=== PATIENT | male | born 1975 | race Caucasian/White ===

== ENCOUNTER 2023-05-21 10:56 | Observation (INO) ==
[2023-05-21] MEDS ORDERED: SODIUM CHLORIDE 0.9% 1,000 ML IV ONE (11:28)
[2023-05-21 11:55] LABS: Basophils # (auto) 0.04 K/uL (0.00-0.20); Basophils % (auto) 0.7 %; Eosinophils # (auto) 0.02 K/uL (0.00-0.50); Eosinophils % (auto) 0.4 %; Hematocrit (blood only) 41.2 % (42.0-52.0); Hemoglobin 13.9 g/dl (14.0-18.0); Immature Granulocytes # (auto) 0.02 K/uL (0.01-0.20); Immature Granulocytes % (auto) 0.4 %; Lymphocytes # (auto) 0.71 K/uL (1.20-3.40); Lymphocytes % (auto) 13.2 %; Mean Corpuscular Hemoglobin 31.2 pg (25.0-34.0); Mean Corpuscular Hgb Conc 33.7 g/dL (32.0-36.0); Mean Corpuscular Volume 92.4 fL (80.0-100.0); Mean Platelet Volume 10.4 fL (9.4-12.4); Monocytes # (auto) 0.65 K/uL (0.11-0.59); Monocytes % (auto) 12.1 %; Neutrophils # (auto) 3.92 K/uL (1.40-6.50); Neutrophils % (auto) 73.2 %; Platelet Count 151 K/uL (130-400); RDW Coefficient of Variation 12.8 % (11.5-14.5); RDW Standard Deviation 43.6 fL (36.4-46.3); Red Blood Count 4.46 M/uL (4.70-6.10); White Blood Count 5.36 K/ul (4.8-10.8)
--- NOTE | 2023-05-21 12:01 | CT Scan Report ---
CT SCAN OF THE BRAIN WITHOUT IV CONTRAST CLINICAL HISTORY: Seizure. COMPARISON STUDY: No priors. TECHNIQUE: Unenhanced axial CT scan of the brain is performed from the vertex to the skull base. A d ose lowering technique was utilized adhering to the principles of ALARA. CT DOSE: 547.75 mGy.cm FINDINGS: Brain parenchyma: A chronic appearing lacunar infarct is noted in the right caudate head. There is no hemorrhage, mass effect, or evidence of acute territorial ischemia by CT criteria. Rey-white matter differentiation is preserved. No extra-axial fluid collection is seen. Ventricles, sulci, cisterns: Normal in configuration. Intracranial vasculature: The visualized intracranial vasculature at the skull base is normal in appe arance. Calvarium: Unremarkable. Sinuses and mastoids: The visualized paranasal sinuses are clear. The mastoid air cells are well pneu matized. Orbits: The bony orbits are grossly intact. IMPRESSION: There is no hemorrhage, mass effect, or evidence of acute territorial ischemia by CT samia gonzalez. ACT 112: Negative or not required by law. Electronically signed by: Sherif Lemus M.D. 05/21/2023 11:59 AM
[2023-05-21 12:10] LABS: BUN Creatinine Ratio 8.9 (10-20); Calcium 8.3 mg/dl (8.6-10.3); Creatinine Clr Calc Pharmacy 85.9 ml/min; Est GFR (African American) 89.5 ml/min; Est GFR (Non-African American) 77.3 ml/min; Magnesium 1.9 mg/dl (1.7-2.4)
[2023-05-21 12:16] LABS: Partial Thromboplastin Ratio 1.1; Partial Thromboplastin Time 30 Seconds (21-31); Prothrombin Time 11.2 Seconds (9.0-12.0)
[2023-05-21 13:23] LABS: Appearance Urine Clear (Clear); Bilirubin Urine Negative (Negative); Blood Urine Negative (Negative); Color Urine Yellow; Glucose Urine UA Negative (Negative); Ketones Urine Negative (Negative); Leukocyte Esterase Urine Negative (Negative); Nitrite Urine Negative (Negative); Protein Urine Negative (Negative); Specific Gravity Urine 1.003 (1.000-1.030); Urobilinogen Urine Negative (Negative)
--- NOTE | 2023-05-21 16:29 | History & Physical Report ---
Date of Service May 21, 2023 Assessment & Plan (1) Seizure-like activity: Plan: Admit to telemetry Patient presenting after observed seizure-like activity while at work. No prior history of seizures. Denies alcohol and drug use. Patient currently back to baseline mental state, no further seizure-like activity Head CT unremarkable Neurology notified by ED provider. Recommending admission for additional observation, brain MRI, EEG. Seizure precaution Hold on AEDs at this time (2) Hypokalemia: Plan: K+ 3.0, Mg+ 1.9 Replace, follow electrolytes (3) Tobacco abuse: Plan: Nicotine patch Patient counseled regarding tobacco cessation DVT PROPHYLAXIS SCDs Patient seen in collaboration with Dr. Lambert. I spent a total of 75 minutes coordinating, documenting, and providing care for this patient excluding time spent in the performance of separately billed servi amy. This included personally reviewing all current laboratories and imaging studies, medication reconciliation, outpatient chart review, and discussion with specialists. History of Present Illness Chief Complaint: Seizure-like activity Primary Care Provider: NO PCP 47 year old male without significant PMH who presents to the ED for evaluation of seizure-like activity. History is obtained from the patient. Patient reports that he was at work today when he started to feel lightheaded. States that he started to walk toward a chair to sit down and the next thing he knew he was waking up on the floor. Reports that his coworkers told him that his eyes had rolled back in the head and he was convulsing on the floor. He also had urinary incontinence. Symptoms lasted for about 30 seconds. No tongue biting or vomiting. Patient denies alcohol and drug use. Reports he otherwise has been feeling well recently. No other recent illnesses, fevers, chills. He denies chest pain and shortness of breath. No lightheadedness, dizziness, diaphoresis. No abdominal pain, nausea, diarrhea. Denies urinary symptoms. In the ED, patient is hemodynamically stable, labs show mild hypokalemia, otherwise unremarkable, head CT unremarkable for acute findings. Patient was given IVF. Neurology was contacted by ED provider who recommended admission for additional workup. Allergies Allergy/AdvReac Type Severity Reaction Status Date / Time bee venom protein (honey bee) Allergy Severe Swelling Unverified 05/21/23 14:36 of Lip/Tongue/Throat sulfamethoxazole Allergy Severe Hives Unverified 05/21/23 14:36 Home Medications Medication Instructions Recorded Confirmed Type No Known Home Medications 05/21/23 05/21/23 History Past Med/Surg History Medical History Tobacco abuse No pertinent past medical history Surgical History History of foot surgery Social History Smoking Status: Current every day smoker Tobacco Type: Cigarettes Cigarettes Per Day: 20; Second Hand Exposure: Yes; Do You Dip or Chew Tobacco: No; Tobacco Cessation Education Requested by Patient: No Hx Alcohol Use: No Hx Substance Use: No Preferred Language: Surinamese Communication Ability: Effective Input Output Clerk Required: No Beliefs That Will Affect Care: None Current Living Situation: Spouse Other Information That Helps Us Care for You: No Feels Safe at Home: Yes Safety Concerns: Feels Safe At This Time Assistive Devices: Glasses Physical Exam Constitutional: WD/WN, vitals as above Eyes: PERRL, conjunctivae normal, anicteric sclerae ENMT: external ear and nose normal, oropharynx normal Respiratory: normal respiratory effort, lungs clear to auscultation Cardiovascular: Rate/Rhythm: regular rate and regular rhythm Vessels: normal peripheral pulses Extremities: no edema Gastrointestinal (Abdomen): normal bowel sounds, soft, nontender, no hepatosplenomegaly Musculoskeletal: no cyanosis or clubbing, extremities motor strength 5/5 Skin: no rashes, warm and dry Neurologic: PERRL, EOMI, accommodation nl, no face palsy, no dysarthria Psychiatric: A+Ox3, euthymic affect Results & Data Results & Data Vital Signs (Past 12 Hours) Vital Signs Temp Pulse Resp BP Pulse Ox O2 Del Method 05/21/23 15:37 63 18 136/83 97 Room Air 05/21/23 15:00 125/79 05/21/23 15:00 60 22 05/21/23 14:30 139/82 05/21/23 14:30 63 18 Room Air 05/21/23 14:00 134/84 05/21/23 14:00 74 21 96 Room Air 05/21/23 13:30 127/85 05/21/23 13:30 69 20 05/21/23 13:12 67 18 05/21/23 13:12 127/92 05/21/23 12:38 72 05/21/23 12:30 132/80 05/21/23 12:30 73 21 05/21/23 12:00 71 17 95 Room Air 05/21/23 12:00 141/83 H 05/21/23 11:30 72 15 05/21/23 11:21 96 Room Air 05/21/23 11:13 36.7 C 80 21 129/79 96 Room Air Laboratory Results Short CBC 05/21/23 Range/Units 11:30 WBC 5.36 (4.8-10.8) K/ul Hgb 13.9 L (14.0-18.0) g/dl Hct 41.2 L (42.0-52.0) % Plt Count 151 (130-400) K/uL BMP 05/21/23 11:30 Sodium 138 Potassium 3.0 L Chloride 106 Carbon Dioxide 24 BUN 10 Creatinine 1.12 Glucose 113 H Calcium 8.3 L Urine 05/21/23 Range/Units 13:09 Urine Color Yellow Urine Appearance Clear (Clear) Urine pH 6.0 (4.5-7.5) Ur Specific [place] 1.003 (1.000-1.030) Urine Protein Negative (Negative) Urine Glucose (UA) Negative (Negative) Diagnostic Findings Head CT 05/21/23 11:29 CT SCAN OF THE BRAIN WITHOUT IV CONTRAST CLINICAL HISTORY: Seizure. COMPARISON STUDY: No priors. TECHNIQUE: Unenhanced axial CT scan of the brain is performed from the vertex to the skull base. A dose lowering technique was utilized adhering to the principles of ALARA. CT DOSE: 547.75 mGy.cm FINDINGS: Brain parenchyma: A chronic appearing lacunar infarct is noted in the right caudate head. There is no hemorrhage, mass effect, or evidence of acute territorial ischemia by CT criteria. Rey-white matter differentiation is preserved. No extra-axial fluid collection is seen. Ventricles, sulci, cisterns: Normal in configuration. Intracranial vasculature: The visualized intracranial vasculature at the skull base is normal in appearance. Calvarium: Unremarkable. Sinuses and mastoids: The visualized paranasal sinuses are clear. The mastoid air cells are well pneumatized. Orbits: The bony orbits are grossly intact. IMPRESSION: There is no hemorrhage, mass effect, or evidence of acute territorial ischemia by CT criteria. ACT 112: Negative or not required by law. Electronically signed by: Sherif Lemus M.D. 05/21/2023 11:59 AM Code Status & VTE Plan VTE Prophylaxis Plan VTE Prophylaxis will be ordered: Yes Supervising Physician Co-Signing Physician Notes Attending addendum; The patient was seen and examined in telemetry unit He was admitted with seizures x 2 while at workplace With incontinence of urine but no significant injury and no frothing from the mouth under tongue bite Did not feel any a profound weakness following the incident Denies any symptoms during my examination On examination Eating on a chair without any acute distress Hemodynamically stable Chest-clear to auscultate bilaterally Heart-S1, S2 regular Abdomen-benign Extremities-negative for any edema 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 No focal sensory or motor deficit appreciated His admission labs, imaging studies reviewed CT and MRI has been negative No seizure medication started Will have EEG Neuroconsult Agree with assessment and plan as outlined above by Cary Lambert
[2023-05-21] MEDS ORDERED: GADOBUTROL 65ML VIAL IV ONE (16:36)
[2023-05-21] MEDS ORDERED: POTASSIUM CHLORIDE CRTAB 20 MEQ TABCR PO STA (16:38)
[2023-05-21] MEDS ORDERED: ACETAMINOPHEN 325 MG TAB PO PRN (16:47)
--- NOTE | 2023-05-21 17:07 | Magnetic Resonance Report ---
MR brain seizure wo/w con HISTORY: 47 years-old Male seizure acute seizure-like activity COMPARISON: Head CT of same day TECHNIQUE: Multiple multisequence MRI of the brain was obtained with and without use of IV contrast u tilizing seizure protocol. FINDINGS: Study is mildly motion degraded. There is no restricted diffusion. The midline structures are unremar kable. Partially empty sella. There is no acute intracranial hemorrhage, midline shift, abnormal extr a-axial collection, hydrocephalus or intra-axial mass. There is no abnormal enhancement. The mesial t emporal lobes appear to be within normal limits. The brain volume is within normal limits. There are a few scattered punctate foci of T2/FLAIR prolongation within the subcortical and periventricular whi te matter which are likely of no clinical evidence. No acute seizure focus, calixto matter heterotopia o r cortical dysplasia. Cerebral venous sinuses and major arterial flow voids appear patent. Skull, orbits and soft tissues a re unremarkable. Minimal mucosal thickening of the left maxillary sinus. IMPRESSION: 1. No acute intracranial abnormality. 2. No abnormal enhancement. ACT 112: Negative or not required by law. The above report was generated using voice recognition software. It may contain grammatical, syntax o r spelling errors. Electronically signed by: Sb Abbott M.D. 05/21/2023 5:05 PM
--- NOTE | 2023-05-21 17:52 | Emergency Department Note ---
History of Present Illness General Chief complaint: Seizure Stated complaint: SEIZURE Time Seen by Provider: 05/21/23 11:22 History of Present Illness Provider complaint: Seizure 47-year-old male presents emergency department for reported seizure. Patient reports that he was at work where he works for [employer]. 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 He reports no contact with any high voltage electricity or exposure to any noxious fumes or gases. Patient reports he started feel lightheaded and then woke up on the floor. Patient reports that his coworkers were telling him that he was seizing and convulsing on the floor. Patient reports no headaches. Reports no nausea or vomiting. Patient reports no urinary incontinence. No tongue bite. Patient reports no history of seizure. Home Medications Medication Instructions Recorded Confirmed Type No Known Home Medications 05/21/23 05/21/23 History Allergies Allergy/AdvReac Type Severity Reaction Status Date / Time bee venom protein (honey bee) Allergy Severe Swelling Unverified 05/21/23 14:36 of Lip/Tongue/Throat sulfamethoxazole Allergy Severe Hives Unverified 05/21/23 14:36 Past Med/Surg History Medical History Tobacco abuse No pertinent past medical history Surgical History History of foot surgery Social History Smoking Status: Current every day smoker Tobacco Type: Cigarettes Cigarettes Per Day: 20; Second Hand Exposure: Yes; Do You Dip or Chew Tobacco: No; Tobacco Cessation Education Requested by Patient: No Hx Alcohol Use: No Hx Substance Use: No Preferred Language: Uruguayan Communication Ability: Effective Beauty Director Required: No Beliefs That Will Affect Care: None Current Living Situation: Spouse Other Information That Helps Us Care for You: No Feels Safe at Home: Yes Safety Concerns: Feels Safe At This Time Assistive Devices: Glasses Physical Exam Vital Signs Vital Signs - 24 hr 05/21/23 11:13 05/21/23 11:21 05/21/23 11:30 Temperature 36.7 C Temperature Source Oral Pulse Rate 80 72 Respiratory Rate 21 15 Respiratory Effort / Characteristics Non-Labored Spontaneous Respiratory Depth Normal Respiratory Pattern Regular Blood Pressure 129/79 Blood Pressure Mean 95 Blood Pressure Position Semi-fowlers Pulse Oximetry 96 96 Oxygen Delivery Method Room Air Room Air Sepsis Recent Fever Within 48 Hours No Sepsis New/Unexplained Change in Mental Status N/A Sepsis Action Taken by Nursing No Action Required 05/21/23 12:00 05/21/23 12:00 05/21/23 12:30 Temperature Temperature Source Pulse Rate 71 73 Respiratory Rate 17 21 Respiratory Effort / Characteristics Respiratory Depth Respiratory Pattern Blood Pressure 141/83 H Blood Pressure Mean 107 Blood Pressure Position Pulse Oximetry 95 Oxygen Delivery Method Room Air Sepsis Recent Fever Within 48 Hours Sepsis New/Unexplained Change in Mental Status Sepsis Action Taken by Nursing 05/21/23 12:30 05/21/23 12:38 05/21/23 13:12 Temperature Temperature Source Pulse Rate 72 Respiratory Rate Respiratory Effort / Characteristics Respiratory Depth Respiratory Pattern Blood Pressure 132/80 127/92 Blood Pressure Mean 95 98 Blood Pressure Position Pulse Oximetry Oxygen Delivery Method Sepsis Recent Fever Within 48 Hours Sepsis New/Unexplained Change in Mental Status Sepsis Action Taken by Nursing 05/21/23 13:12 05/21/23 13:30 05/21/23 13:30 Temperature Temperature Source Pulse Rate 67 69 Respiratory Rate 18 20 Respiratory Effort / Characteristics Respiratory Depth Respiratory Pattern Blood Pressure 127/85 Blood Pressure Mean 91 Blood Pressure Position Pulse Oximetry Oxygen Delivery Method Sepsis Recent Fever Within 48 Hours Sepsis New/Unexplained Change in Mental Status Sepsis Action Taken by Nursing 05/21/23 14:00 05/21/23 14:00 05/21/23 14:30 Temperature Temperature Source Pulse Rate 74 63 Respiratory Rate 21 18 Respiratory Effort / Characteristics Respiratory Depth Respiratory Pattern Blood Pressure 134/84 Blood Pressure Mean 92 Blood Pressure Position Pulse Oximetry 96 Oxygen Delivery Method Room Air Room Air Sepsis Recent Fever Within 48 Hours Sepsis New/Unexplained Change in Mental Status Sepsis Action Taken by Nursing 05/21/23 14:30 Temperature Temperature Source Pulse Rate Respiratory Rate Respiratory Effort / Characteristics Respiratory Depth Respiratory Pattern Blood Pressure 139/82 Blood Pressure Mean 108 Blood Pressure Position Pulse Oximetry Oxygen Delivery Method Sepsis Recent Fever Within 48 Hours Sepsis New/Unexplained Change in Mental Status Sepsis Action Taken by Nursing Physical Exam HENT: Exam performed. -Head: Normocephalic and atraumatic. -Right Ear: External ear normal. No mastoid erythema -Left Ear: External ear normal. No mastoid erythema -Mouth/Throat: The oropharynx is clear and moist. No trismus in the jaw. No dental abscesses or uvula swelling. No oropharyngeal exudate or tonsillar abscesses. EYES: Conjunctivae and EOM are normal. Pupils are equal, round, and reactive to light. Right eye exhibits no discharge. Left eye exhibits no discharge. No scleral icterus. Funduscopic exam showed no AV nicking or papilledema bilaterally. NECK: Normal range of motion. Neck supple. No JVD present. No spinous process tenderness present. No rigidity. No tracheal deviation and normal range of motion present. No Brudzinski's sign and no Kernig's sign noted. CV: Normal rate, regular rhythm, normal heart sounds and intact distal pulses. There is no peripheral edema. Palpable radial pulses bue. PULM/CHEST: Effort normal and breath sounds normal. No respiratory distress. No stridor. She has no wheezes. She has no rales. MUSC/SKEL: Normal range of motion. There is no peripheral edema, tenderness or deformity. NEURO: She is alert and oriented to person, place, and time. She has normal strength. No cranial nerve deficit or sensory deficit. Coordination and gait normal. GCS eye subscore is 4. GCS verbal subscore is 5. GCS motor subscore is 6. Cerebellar tests wnl. No clonus. SKIN: Skin is warm and dry. She is not diaphoretic. PSYCH: She has a normal mood and affect. Behavior is normal. Judgment and thought content normal. Course Course 1122: The patient was evaluated in room B12. A complete history and physical exam was performed Cardiac monitoring: An order was placed for continuous cardiac monitoring. The monitor shows a rate of 70 with sinus rhythm interpreted by ms 1400: Vital signs stable. Labs and imaging within normal limits. Discussed the case with neurology on-call Dr. Matamoros who recommends admission for MRI with and without contrast as well as EEG. She recommends no antiepileptics at this time. Does and her hospitalist team will be made aware. Administered Medications Discontinued Medications Gadobutrol (Gadobutrol 65ml Vial) 8.1 ml IV ONCE ONE Stop: 05/21/23 16:37 Last Admin: 05/21/23 16:37 Dose: 8.1 ml Documented By: [facility] Sodium Chloride (Nss) 1,000 mls @ 999 mls/hr IV .Q1H1M ONE Stop: 05/21/23 12:28 Last Infusion: 05/21/23 13:09 Dose: Infused Documented By: Admin: 05/21/23 11:57 Dose: 999 mls/hr Documented By: Potassium Chloride (Potassium Chloride Crtab 20 Meq Tabcr) 40 meq PO NOW STA Stop: 05/21/23 16:39 Last Admin: 05/21/23 17:07 Dose: 40 meq Documented By: ALINE Medical Decision Making Laboratory Data Attestation: I reviewed the patient's lab results. 05/21/23 11:30 05/21/23 11:30 Lab Results 05/21/23 05/21/23 Range/Units 11:30 13:09 WBC 5.36 (4.8-10.8) K/ul RBC 4.46 L (4.70-6.10) M/uL Hgb 13.9 L (14.0-18.0) g/dl Hct 41.2 L (42.0-52.0) % MCV 92.4 (80.0-100.0) fL MCH 31.2 (25.0-34.0) pg MCHC 33.7 (32.0-36.0) g/dL RDW Std Deviation 43.6 (36.4-46.3) fL RDW Coeff of Jhonathan 12.8 (11.5-14.5) % Plt Count 151 (130-400) K/uL MPV 10.4 (9.4-12.4) fL Immature Gran % (Auto) 0.4 % Neut % (Auto) 73.2 % Lymph % (Auto) 13.2 % [place] % (Auto) 12.1 % Eos % (Auto) 0.4 % Baso % (Auto) 0.7 % Neut # (Auto) 3.92 (1.40-6.50) K/uL Lymph # (Auto) 0.71 L (1.20-3.40) K/uL [place] # (Auto) 0.65 H (0.11-0.59) K/uL Eos # (Auto) 0.02 (0.00-0.50) K/uL Baso # (Auto) 0.04 (0.00-0.20) K/uL Immature Gran # (Auto) 0.02 (0.01-0.20) K/uL PT 11.2 (9.0-12.0) Seconds INR 1.0 (0.9-1.1) APTT 30 (21-31) Seconds PTT Ratio 1.1 Sodium 138 (136-145) mmol/L Potassium 3.0 L (3.5-5.1) mmol/L Chloride 106 (98-107) mmol/L Carbon Dioxide 24 (21-32) mmol/L Anion Gap 8 (3-11) BUN 10 (6-23) mg/dl Creatinine 1.12 (0.6-1.4) mg/dl Est Cr Clr Drug Dosing 85.9 ml/min Est GFR ( Amer) 89.5 ml/min Est GFR (Non-Af Amer) 77.3 ml/min BUN/Creatinine Ratio 8.9 L (10-20) Glucose 113 H (70-99(Fasting)) mg/dl POC Glucose 109 H (70-99) mg/dl Calcium 8.3 L (8.6-10.3) mg/dl Magnesium 1.9 (1.7-2.4) mg/dl Urine Color Yellow Urine Appearance Clear (Clear) Urine pH 6.0 (4.5-7.5) Ur Specific [place] 1.003 (1.000-1.030) Urine Protein Negative (Negative) Urine Glucose (UA) Negative (Negative) Urine Ketones Negative (Negative) Urine Blood Negative (Negative) Urine Nitrite Negative (Negative) Urine Bilirubin Negative (Negative) Urine Urobilinogen Negative (Negative) Ur Leukocyte Esterase Negative (Negative) Imaging Data Attestation: I personally reviewed and interpreted this imaging study as follows: My Impression: CT head no ICH Radiologist's Impression: Head CT 05/21/23 11:29 CT SCAN OF THE BRAIN WITHOUT IV CONTRAST CLINICAL HISTORY: Seizure. COMPARISON STUDY: No priors. TECHNIQUE: Unenhanced axial CT scan of the brain is performed from the vertex to the skull base. A dose lowering technique was utilized adhering to the principles of ALARA. CT DOSE: 547.75 mGy.cm FINDINGS: Brain parenchyma: A chronic appearing lacunar infarct is noted in the right caudate head. There is no hemorrhage, mass effect, or evidence of acute territorial ischemia by CT criteria. Rey-white matter differentiation is preserved. No extra-axial fluid collection is seen. Ventricles, sulci, cisterns: Normal in configuration. Intracranial vasculature: The visualized intracranial vasculature at the skull base is normal in appearance. Calvarium: Unremarkable. Sinuses and mastoids: The visualized paranasal sinuses are clear. The mastoid air cells are well pneumatized. Orbits: The bony orbits are grossly intact. IMPRESSION: There is no hemorrhage, mass effect, or evidence of acute territorial ischemia by CT criteria. ACT 112: Negative or not required by law. Electronically signed by: Sherif Lemus M.D. 05/21/2023 11:59 AM ECG Data Attestation: I personally reviewed and interpreted this ECG as follows: Rate (beats per minute): 74 Rhythm: + normal sinus ECG Intervals/blocks: + Normal QRS, + Normal [place] and + Normal QT-c ECG ST segments: + Normal ST segments MDM Narrative 1122: The patient was evaluated in room B12. A complete history and physical exam was performed Cardiac monitoring: An order was placed for continuous cardiac monitoring. The monitor shows a rate of 70 with sinus rhythm interpreted by me 1400: Vital signs stable. Labs and imaging within normal limits. Discussed the case with neurology on-call Dr. Matamoros who recommends admission for MRI with and without contrast as well as EEG. She recommends no antiepileptics at this time. Does and her hospitalist team will be made aware. Impression & Plan Seizure-like activity, Hypokalemia Discharge Plan Visit Data Chief Complaint: Seizure Stated Complaint: SEIZURE ED Provider: Chaz Brewer Discharge Problem: Seizure-like activity, Hypokalemia Patient Disposition: Admitted As Inpatient Discharge Instructions Interventions: ED Discharge Assessment Last Done: 05/21/23 16:15
[2023-05-22 06:30] LABS: Hematocrit (blood only) 45.1 % (42.0-52.0); Hemoglobin 14.9 g/dl (14.0-18.0); Mean Corpuscular Hemoglobin 30.6 pg (25.0-34.0); Mean Corpuscular Volume 92.6 fL (80.0-100.0); Mean Platelet Volume 10.5 fL (9.4-12.4); Platelet Count 151 K/uL (130-400); RDW Coefficient of Variation 12.8 % (11.5-14.5); RDW Standard Deviation 43.7 fL (36.4-46.3); Red Blood Count 4.87 M/uL (4.70-6.10); White Blood Count 5.22 K/ul (4.8-10.8)
[2023-05-22 06:56] LABS: BUN Creatinine Ratio 8.1 (10-20); Calcium 8.7 mg/dl (8.6-10.3); Creatinine Clr Calc Pharmacy 97.2 ml/min; Est GFR (African American) 103.9 ml/min; Est GFR (Non-African American) 89.7 ml/min; Potassium 3.3 mmol/L (3.5-5.1)
[2023-05-22] MEDS ORDERED: POTASSIUM CHLORIDE CRTAB 20 MEQ TABCR PO ONE (07:47)
[2023-05-22] MEDS: NICOTINE 21 MG/24 HR TDSY TD SCH (08:05)
--- NOTE | 2023-05-22 08:45 | Electrocardiogram Report ---
Test Reason : Blood Pressure : / mmHG Vent. Rate : 074 BPM Atrial Rate : 074 BPM P-R Int : 126 ms QRS Dur : 092 ms QT Int : 414 ms P-R-T Axes : 043 065 057 degrees QTc Int : 459 ms Normal sinus rhythm Normal ECG No previous ECGs available Confirmed by Gino Titus ([id number]) on 05/22/2023 8:45:30 AM Referred By: Confirmed By:Gino Titus
--- OUTSIDE RECORDS SUMMARY | 2023-05-22 09:05 | External Medical Summary | Summary of Care ---
Author Name Unknown Organization [facility] Address [address] [place] [address] Phone [phone] Care Team Providers Care Lead Pony Rider Name Role Phone Daniele Peoples PA-C Primary Care Provider [phone] Encounter Details Date Type Department Care Team Description 12/30/2022 Orders Only Outcomes Research Department [address] [place] [address] Erin Ramirez CHRA [facility] Research Other*[id number] Allergies Active Allergy Reactions Severity Noted Date Comments Bee Venom Edema Other 05/06/2018 Sulfamethoxazole Hives 09/07/2021 Other reaction(s): hand swelling documented as of this encounter (statuses as of 12/30/2022) Medications Medication Sig Dispensed Refills Start Date End Date Status Ibuprofen 200 MG Oral Capsule Take 1 Capsule by mouth every 4 hours as needed. 0 Active Clinitest Rapid COVID-19 Test In Vitro Kit 0 02/15/2022 Active COVID-19 At Home Antigen Test In Vitro Kit TEST DIRECTED 5 Kit 3 02/15/2022 02/15/2023 Active documented as of this encounter (statuses as of 12/30/2022) Active Problems No known active problems documented as of this encounter (statuses as of 12/30/2022) Social History Tobacco Use Types Packs/Day Years Used Date Smoking Tobacco: Every Day Cigarettes 1 Smokeless Tobacco: Never Alcohol Use Standard Drinks/Week Comments Not Currently 0 (1 standard drink = 0.6 oz pur e alcohol) Sex Assigned at Date Recorded Not on file Job Start Date Occupation Industry Not on file Not on file Not on file documented as of this encounter Plan of Treatment Scheduled Orders Name Type Priority Associated Diagnoses Orde r Schedule MYCODE SUBSEQUENT ADULT Lab Routine My[facility] Research Other*[id number] Every 6 Months for 2 Occurrences starting 12/30/2022 until 01/19/2024 Health Maintenance Due Date Last Done Comments Hepatitis B (1 of 3 - 3-dose series) 1974 Lipid Panel 1974 Pneumococcal Vaccine: Pediat rics (0 to 5 Years) and At-Risk Patients (6 to 64 Years) (1 - PCV) 1980 Depression Screening, Annual for Pts 12 and Over 1986 HIV Screening 1989 Hepatitis C Screening 1992 DTaP,Tdap,and Td Vaccines (1 - Tdap) 04/04/2005 04/03/2005 Cologuard 09/04/2019 Colonoscopy 09/04/2019 Colorectal Cancer Screening 09/04/2019 Fecal Occult Blood Test 09/04/2019 Sigmoidoscopy 09/04/2019 COVID-19 Vaccine (2 - Pfizer series) 06/25/2021 04/30/2021 Influenza Vaccine (FLU shot) (#1) 2023 Diabetes Screening 10/19/2024 10/19/2021 GARDASIL-HPV IMMUNIZATION SERIES Aged Out No longer eligible based on patient's age to complete this topic MENINGOCOCCAL (MENACTRA/MENVEO) Aged Out No longer eligible based on patient's age to complete this topic documented as of this encounter Medical Devices Not on filedocumented as of this encounter Visit Diagnoses Diagnosis My[facility] Research Other*[id number] documented in this encounter Care Teams Lead Pony Rider Relationship Specialty Start Date End Date Daniele Peoples PA-C [address] [facility] [place] [address] PCP - General Physician Top Spotter 09/26/17 documented as of this encounter
--- NOTE | 2023-05-22 10:33 | Neurology Consultation ---
Date of Consultation May 22, 2023 Assessment & Plan (1) Convulsive syncope: Plan 47 y/o male with history of tobacco use that presented following an episode of loss of consciousness, in the setting of recent illness. Overall, the history of the event is more suggestive of convulsive syncope, although unable to exclude seizure. However, as this is a first event, even if event were to represent seizure, would not initiate medication at this time. Would proceed with EEG and recommend syncope work-up per primary. 1. EEG 2. Seizure precuations 3. No driving 4. Syncope work-up per primary Telehealth Consultation Telehealth Information Telehealth Information: I performed this visit using a real-time telehealth connection between my location and the patients location ([facility]). After connecting through interactive tele-video, patient was identified by name and date of and/or wristband check.Patient (or authorized healthcare sales representative health insurance) was informed that this was a telemedicine visit and it was being conducted confidentially over secure lines. My office door was closed and no one else was present in the room with me.Patient (or authorized healthcare sales representative health insurance) provided consent to proceed with the visit, expressed an understanding of privacy and security of the telemedicine visit, and gave permission to have a hospital sales representative health insurance in the room in order to assist with the visit and to conduct portions of the visit, as needed. I informed the patient (or authorized healthcare sales representative health insurance) that I reviewed their record a nd presented the opportunity for them to ask any questions regarding the visit today. The patient agreed to participate. History of Present Illness Reason for Consultation: seizure like activity Requesting Physician: BARNEY Valderrama Attending Physician: Chevy Jeong MD History of Present Illness 47 y/o male with history of tobacco use that presented following an episode of loss of consciousness. 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 He was standing at that time. He then started feel lightheaded. He thought that maybe it was because he was getting hungry. He decided to head to the chair and then the next thing he knew he woke up on the floor. He states that his coworkers told him that he was shaking and his eyes rolled back in his head. This lasted about 30 seconds he thinks. He thinks that he returned to baseline quickly. He did have bowel incontinence. He denies tongue biting. He denies any history of head trauma, seizures, similar prior events. He states that for the few days prior, he had not been feeling well with fever and myalgia at home. He was not eating much during this time. These symptoms have now resolved and he feels he has returned to baseline. He denies any change in sleep. He denies headache, change in speech, numbness/tingling, vision loss/change, or gait impairment. Allergies Allergy/AdvReac Type Severity Reaction Status Date / Time bee venom protein (honey bee) Allergy Severe Swelling Unverified 05/21/23 14:36 of Lip/Tongue/Throat sulfamethoxazole Allergy Severe Hives Unverified 05/21/23 14:36 Home Medications Medication Instructions Recorded Confirmed Type No Known Home Medications 05/21/23 05/21/23 History Patient History Medical History (Updated 05/22/23 @ 11:14 by Patricia Matamoros MD) Seizure-like activity Tobacco abuse No pertinent past medical history Surgical History History of foot surgery Social History Smoking Status: Current every day smoker Tobacco Type: Cigarettes Cigarettes Per Day: 20; Second Hand Exposure: Yes; Do You Dip or Chew Tobacco: No; Tobacco Cessation Education Requested by Patient: No Hx Alcohol Use: No Hx Substance Use: No Preferred Language: Argentine Communication Ability: Effective Banner Painter Required: No Beliefs That Will Affect Care: None Current Living Situation: Spouse Other Information That Helps Us Care for You: No Feels Safe at Home: Yes Safety Concerns: Feels Safe At This Time Assistive Devices: Glasses Review of Systems negative except as listed in HPI Physical Exam AAo X 3 No aphasia or dysarthria VFF intact EOMI, no nystagmus Facial sensations intact No facial asymmetry Tongue protrudes midline Motor: Moves all four extremities antigravity, no drift. No involuntary movements. Sensation: Intact to light touch throughout Cerebellar: No ataxia wit FTN or HTS Results & Data Vital Signs (Past 12 Hours) Vital Signs Temp Pulse Pulse Resp BP Pulse Ox O2 Del Method 05/22/23 09:55 81 05/22/23 07:55 36.9 C 60 19 109/71 97 Room Air 05/22/23 03:23 36.7 C 18 135/82 96 Room Air 05/21/23 23:14 36.5 C 18 112/73 96 Room Air Laboratory Results WBC 5.22, HGB 14.9, HCT 45.1, Plt 151, INR 1.0, Na 144, Potassium 3.3, Chloride 113, CO2 23, Creatinine 0.99, Glucose 88, Magnesium 1.9, UA negative nitrite, negative leukocyte esterase Diagnostic Findings MRI brain w/wo:1. No acute intracranial abnormality. 2. No abnormal enhancement. CTH:There is no hemorrhage, mass effect, or evidence of acute territorial ischemia by CT criteria. TTE: EF 55-60%, normal left atrial size, PFO
--- NOTE | 2023-05-22 14:11 | Hospitalist Progress Note ---
Date of Service May 22, 2023 Assessment & Plan (1) Seizure-like activity: Plan: Cardiology syncope No known seizure disorder --MRI Brain:No acute intracranial abnormality. No abnormal enhancement. --ECHO: Left ventricle is normal in size. Left ventricular systolic function is normal. EF 55 to 60%. Right ventricle systolic function is normal. Left atrial size is normal. Right atrial size is normal. No significant valvular pathology. Patent foramen ovale is present and there is low risk for embolism. -- Carotid ultrasound pending --EEG pending --Check orthostatics Appreciate nephrology input Continue seizure precautions, fall precautions Monitor to rule out any arrhythmias, likely will need event monitor as outpatient Needs follow-up with neurology upon discharge Advise no driving until cleared by neurology (2) Hypokalemia: Plan: K+ 3.0, Mg+ 1.9 Replace, monitor electrolytes (3) Tobacco abuse: Plan: Nicotine patch Patient counseled regarding tobacco cessation DVT Px SCDs Admission and Anticipated Discharge Date Admission Date: May 21, 2023 Subjective Patient is seen and examined at bedside States feeling well this morning Denies any chest pain, dyspnea, headache, change in vision, focal weakness, nausea, vomiting, abdominal pain No other complaints No seizure activity since hospitalization Review of Systems Review of Systems: All systems reviewed & are unremarkable except as noted in Subjective Physical Exam Physical Exam: Physical Exam: Vitals signs as noted above General Appearance:Moderately built and nourished, no apparent distress Head: normocephalic, Atraumatic Eyes: normal inspection, EOMI Neck: supple, Trachea midline Respiratory/Chest: Normal breath sounds, CTA, No accessory muscle use Cardiovascular: S1, S2, No murmur Abdomen/GI:Soft, Non tender, Bowel sounds present Extremities/Musculoskeletal:normal inspection, no edema Neurologic/Psych:AAOX3, grossly no focal neurological deficits Skin: normal color, warm Results & Data Results & Data Vital Signs (Past 12 Hours) Vital Signs Temp Pulse Pulse Resp BP Pulse Ox O2 Del Method 05/22/23 11:25 37.1 C 59 L 19 116/68 96 Room Air 05/22/23 09:55 81 05/22/23 07:55 36.9 C 60 19 109/71 97 Room Air 05/22/23 03:23 36.7 C 18 135/82 96 Room Air Laboratory Results Short CBC 05/22/23 Range/Units 06:10 WBC 5.22 (4.8-10.8) K/ul Hgb 14.9 (14.0-18.0) g/dl Hct 45.1 (42.0-52.0) % Plt Count 151 (130-400) K/uL [facility] 05/22/23 06:10 Sodium 144 Potassium 3.3 L Chloride 113 H Carbon Dioxide 23 BUN 8 Creatinine 0.99 Glucose 88 Calcium 8.7
--- NOTE | 2023-05-22 15:47 | Electroencephalogram ---
EEG Procedure Note Date of Service May 22, 2023 Start / End Times Start Time: 14:39 End Time: 14:59 Referring Physician BARNEY Valderrama History A 47-year-old male with syncopal episode. EEG performed for evaluation of epileptiform activity. Home Medication List Medication Instructions Recorded Confirmed Type No Known Home Medications 05/21/23 05/21/23 History Inpatient Medication List Miscellaneous (Remove Nicoderm Patch) 1 each N/A DAILY@0859 TERRENCE Stop: 06/21/23 08:58 Last Admin: 05/22/23 08:05 Dose: Not Given Documented By: ALINE Nicotine (Nicotine 21 Mg/24 Hr Tdsy) 21 mg TD QAM TERRENCE Stop: 06/21/23 08:59 Last Admin: 05/22/23 08:05 Dose: Not Given Documented By: ALINE Discontinued Medications Gadobutrol (Gadobutrol 65ml Vial) 8.1 ml IV ONCE ONE Stop: 05/21/23 16:37 Last Admin: 05/21/23 16:37 Dose: 8.1 ml Documented By: [facility] Sodium Chloride (Nss) 1,000 mls @ 999 mls/hr IV .Q1H1M ONE Stop: 05/21/23 12:28 Last Infusion: 05/21/23 13:09 Dose: Infused Documented By: Admin: 05/21/23 11:57 Dose: 999 mls/hr Documented By: Potassium Chloride (Potassium Chloride Crtab 20 Meq Tabcr) 40 meq PO NOW STA Stop: 05/21/23 16:39 Last Admin: 05/21/23 17:07 Dose: 40 meq Documented By: ALINE Potassium Chloride (Potassium Chloride Crtab 20 Meq Tabcr) 40 meq PO ONE ONE Stop: 05/22/23 07:48 Last Admin: 05/22/23 08:05 Dose: 40 meq Documented By: ALINE Description This is a 21 electrode EEG with a single channel dedicated to limited EKG. The electrodes were placed in accordance with the International 10-20 system. REPORT: At the onset of the EEG, the patient is awake. The background activity consist of 9-10 Hz, persistent, posteriorly dominant, moderate amplitude, sym metric and rhythmic activity that is reactive to eye opening. Anteriorly, it consist of a mixture of low voltage indeterminate activity and 15-25 Hz, persistent, low amplitude, symmetric and rhythmic activity. Stepwise intermittent photic stimulation (1-21 Hz) does not induce any abnormalities. Drowsiness is characterized by low amplitude mixed frequency activity, roving eye movements, and decreased eye blinking and muscle artifact. Interpretation IMPRESSION: This is a normal awake and drowsy routine EEG. There is no evidence of focal slowing or epileptiform activity.
--- NOTE | 2023-05-22 15:48 | Ultrasound Report ---
ULTRASOUND OF THE CAROTID ARTERIES CLINICAL HISTORY: Syncope. COMPARISON STUDY: No priors. TECHNIQUE: Real-time, grayscale, and color Doppler sonography of the carotid arteries is performed. I mages are reviewed in the transverse and longitudinal planes. FINDINGS: The carotid arteries are patent bilaterally and demonstrate antegrade flow. There is no significant a therosclerotic plaque identified. Normal doppler arterial waveforms are seen throughout. Velocity peggy surements are listed below. Common carotid peak systolic velocity (cm/sec): RIGHT: 92 LEFT: 133 ICA proximal peak systolic velocity (cm/sec): RIGHT: 80 LEFT: 79 ICA mid peak systolic velocity (cm/sec): RIGHT: 79 LEFT: 64 ICA distal peak systolic velocity (cm/sec): RIGHT: 84 LEFT: 74 ICA/CC peak systolic ratio: RIGHT: 0.9 LEFT: 0.6 Antegrade flow was shown in the vertebral arteries. The external carotid arteries are patent. IMPRESSION: 1. There is no sonographic evidence of hemodynamically significant stenosis in the right or left howard tid arterial system. 2. Antegrade flow is shown in the vertebral arteries. ACT 112: Negative or not required by law. Electronically signed by: Sherif Lemus M.D. 05/22/2023 3:47 PM
[2023-05-23 06:11] LABS: BUN Creatinine Ratio 10.6 (10-20); Calcium 8.5 mg/dl (8.6-10.3); Creatinine Clr Calc Pharmacy 92.5 ml/min; Est GFR (African American) 97.9 ml/min; Est GFR (Non-African American) 84.5 ml/min; Magnesium 1.9 mg/dl (1.7-2.4); Potassium 3.7 mmol/L (3.5-5.1)
[2023-05-23 06:19] LABS: Hematocrit (blood only) 43.5 % (42.0-52.0); Hemoglobin 14.3 g/dl (14.0-18.0); Mean Corpuscular Hemoglobin 30.7 pg (25.0-34.0); Mean Corpuscular Hgb Conc 32.9 g/dL (32.0-36.0); Mean Corpuscular Volume 93.3 fL (80.0-100.0); Mean Platelet Volume 10.7 fL (9.4-12.4); Platelet Count 133 K/uL (130-400); RDW Coefficient of Variation 12.9 % (11.5-14.5); RDW Standard Deviation 44.1 fL (36.4-46.3); Red Blood Count 4.66 M/uL (4.70-6.10)
[2023-05-23] MEDS: NICOTINE 21 MG/24 HR TDSY TD SCH (08:13)
[2023-05-23] MEDS ORDERED: POTASSIUM CHLORIDE CRTAB 20 MEQ TABCR PO SCH (09:00)
--- NOTE | 2023-05-23 12:50 | Hospitalist Progress Note ---
Date of Service May 23, 2023 Assessment & Plan (1) Seizure-like activity: Plan: Cardiology syncope No known seizure disorder --MRI Brain:No acute intracranial abnormality. No abnormal enhancement. --ECHO: Left ventricle is normal in size. Left ventricular systolic function is normal. EF 55 to 60%. Right ventricle systolic function is normal. Left atrial size is normal. Right atrial size is normal. No significant valvular pathology. Patent foramen ovale is present and there is low risk for embolism. -- Carotid ultrasound: There is no sonographic evidence of hemodynamically significant stenosis in the right or left carotid arterial system. Antegrade flow is shown in the vertebral arteries. --EEG:This is a normal awake and drowsy routine EEG. There is no evidence of focal slowing or epileptiform activity. --Normal orthostatics --- No rhythm issues on monitor. Transient bradycardia. Appreciate nephrology input Continue seizure precautions, fall precautions Advised no driving until cleared by his neurologist Also advised to get Zio patch arranged by PCP Needs follow-up with neurology upon discharge Plan to discharge home today (2) Hypokalemia: Plan: K+ 3.0, Mg+ 1.9 Replace, monitor electrolytes (3) Tobacco abuse: Plan: Nicotine patch Patient counseled regarding tobacco cessation DVT Px SCDs Admission and Anticipated Discharge Date Admission Date: May 21, 2023 Subjective Patient is seen and examined at bedside No new complaints Denies any chest pain, dyspnea, headache, change in vision, focal weakness, nausea, vomiting, abdominal pain No seizure activity since hospitalization No rhythm issues on monitor Review of Systems Review of Systems: All systems reviewed & are unremarkable except as noted in Subjective Physical Exam Physical Exam: Physical Exam: Vitals signs as noted above General Appearance:Moderately built and nourished, no apparent distress Head: normocephalic, Atraumatic Eyes: normal inspection, EOMI Neck: supple, Trachea midline Respiratory/Chest: Normal breath sounds, CTA, No accessory muscle use Cardiovascular: S1, S2, No murmur Abdomen/GI:Soft, Non tender, Bowel sounds present Extremities/Musculoskeletal:normal inspection, no edema Neurologic/Psych:AAOX3, grossly no focal neurological deficits Skin: normal color, warm Results & Data Results & Data Vital Signs (Past 12 Hours) Vital Signs Temp Pulse Pulse Resp BP Pulse Ox O2 Del Method 05/23/23 10:57 36.4 C L 57 L 20 117/54 L 99 Room Air 05/23/23 08:20 Room Air 05/23/23 07:51 48 L 05/23/23 07:48 36.3 C L 62 18 115/74 97 Room Air 05/23/23 03:12 37.3 C 52 L 18 119/62 97 Room Air O2 Flow Rate 05/23/23 10:57 05/23/23 08:20 0 05/23/23 07:51 05/23/23 07:48 05/23/23 03:12 Laboratory Results Short CBC 05/23/23 Range/Units 05:35 WBC 4.70 L (4.8-10.8) K/ul Hgb 14.3 (14.0-18.0) g/dl Hct 43.5 (42.0-52.0) % Plt Count 133 (130-400) K/uL BMP 05/23/23 05:35 Sodium 141 Potassium 3.7 Chloride 112 H Carbon Dioxide 23 BUN 11 Creatinine 1.04 Glucose 94 Calcium 8.5 L
--- NOTE | 2023-05-23 13:01 | Discharge Summary ---
Date of Service May 23, 2023 Admission HPI Per Admitting Provider 47 year old male without significant PMH who presents to the ED for evaluation of seizure-like activity. History is obtained from the patient. Patient reports that he was at work today when he started to feel lightheaded. States that he started to walk toward a chair to sit down and the next thing he knew he was waking up on the floor. Reports that his coworkers told him that his eyes had rolled back in the head and he was convulsing on the floor. He also had urinary incontinence. Symptoms lasted for about 30 seconds. No tongue biting or vomiting. Patient denies alcohol and drug use. Reports he otherwise has been feeling well recently. No other recent illnesses, fevers, chills. He denies chest pain and shortness of breath. No lightheadedness, dizziness, diaphoresis. No abdominal pain, nausea, diarrhea. Denies urinary symptoms. In the ED, patient is hemodynamically stable, labs show mild hypokalemia, otherwise unremarkable, head CT unremarkable for acute findings. Patient was given IVF. Neurology was contacted by ED provider who recommended admission for additional workup. Admission Exam Per Admitting Provider Constitutional: WD/WN, vitals as above Eyes: PERRL, conjunctivae normal, anicteric sclerae ENMT: external ear and nose normal, oropharynx normal Respiratory: normal respiratory effort, lungs clear to auscultation Cardiovascular: Rate/Rhythm: regular rate and regular rhythm Vessels: normal peripheral pulses Extremities: no edema Gastrointestinal (Abdomen): normal bowel sounds, soft, nontender, no hepatosplenomegaly Musculoskeletal: no cyanosis or clubbing, extremities motor strength 5/5 Skin: no rashes, warm and dry Neurologic: PERRL, EOMI, accommodation nl, no face palsy, no dysarthria Psychiatric: A+Ox3, euthymic affect Principal Diagnosis Convulsive syncope Sinus bradycardia Hypokalemia Discharge Data Allergies Allergy/AdvReac Type Severity Reaction Status Date / Time bee venom protein (honey bee) Allergy Severe Swelling Unverified 05/21/23 14:36 of Lip/Tongue/Throat sulfamethoxazole Allergy Severe Hives Unverified 05/21/23 14:36 Consultations 05/21/23 14:10 ED Decision to Admit Stat 05/21/23 14:55 Consult Neurology Routine Procedures Performed Laboratory Results WBC 4.70 K/ul (4.8-10.8) L 12/15/23 05:35 RBC 4.66 M/uL (4.70-6.10) L 05/23/23 05:35 Hgb 14.3 g/dl (14.0-18.0) 05/23/23 05:35 Hct 43.5 % (42.0-52.0) 05/23/23 05:35 MCV 93.3 fL (80.0-100.0) 05/23/23 05:35 MCH 30.7 pg (25.0-34.0) 05/23/23 05:35 MCHC 32.9 g/dL (32.0-36.0) 05/23/23 05:35 RDW Std Deviation 44.1 fL (36.4-46.3) 05/23/23 05:35 RDW Coeff of Jhonathan 12.9 % (11.5-14.5) 05/23/23 05:35 Plt Count 133 K/uL (130-400) 05/23/23 05:35 MPV 10.7 fL (9.4-12.4) 05/23/23 05:35 Immature Gran % (Auto) 0.4 % 05/21/23 11:30 Neut % (Auto) 73.2 % 05/21/23 11:30 Lymph % (Auto) 13.2 % 05/21/23 11:30 [place] % (Auto) 12.1 % 05/21/23 11:30 Eos % (Auto) 0.4 % 05/21/23 11:30 Baso % (Auto) 0.7 % 05/21/23 11:30 Neut # (Auto) 3.92 K/uL (1.40-6.50) 05/21/23 11:30 Lymph # (Auto) 0.71 K/uL (1.20-3.40) L 05/21/23 11:30 Kingman # (Auto) 0.65 K/uL (0.11-0.59) H 05/21/23 11:30 Eos # (Auto) 0.02 K/uL (0.00-0.50) 05/21/23 11:30 Baso # (Auto) 0.04 K/uL (0.00-0.20) 05/21/23 11:30 Immature Gran # (Auto) 0.02 K/uL (0.01-0.20) 05/21/23 11:30 PT 11.2 Seconds (9.0-12.0) 05/21/23 11:30 INR 1.0 (0.9-1.1) 05/21/23 11:30 APTT 30 Seconds (21-31) 05/21/23 11:30 PTT Ratio 1.1 05/21/23 11:30 Sodium 141 mmol/L (136-145) 05/23/23 05:35 Potassium 3.7 mmol/L (3.5-5.1) 05/23/23 05:35 Chloride 112 mmol/L (98-107) H 05/23/23 05:35 Carbon Dioxide 23 mmol/L (21-32) 05/23/23 05:35 Anion Gap 6 (3-11) 05/23/23 05:35 BUN 11 mg/dl (6-23) 05/23/23 05:35 Creatinine 1.04 mg/dl (0.6-1.4) 05/23/23 05:35 Est Cr Clr Drug Dosing 92.5 ml/min 05/23/23 05:35 Est GFR ( Amer) 97.9 ml/min 05/23/23 05:35 Est GFR (Non-Af Amer) 84.5 ml/min 05/23/23 05:35 BUN/Creatinine Ratio 10.6 (10-20) 05/23/23 05:35 Glucose 94 mg/dl (70-99(Fasting)) 05/23/23 05:35 POC Glucose 109 mg/dl (70-99) H 05/21/23 11:30 Calcium 8.5 mg/dl (8.6-10.3) L 05/23/23 05:35 Magnesium 1.9 mg/dl (1.7-2.4) 05/23/23 05:35 Urine Color Yellow 05/21/23 13:09 Urine Appearance Clear (Clear) 05/21/23 13:09 Urine pH 6.0 (4.5-7.5) 05/21/23 13:09 Ur Specific [place] 1.003 (1.000-1.030) 05/21/23 13:09 Urine Protein Negative (Negative) 05/21/23 13:09 Urine Glucose (UA) Negative (Negative) 05/21/23 13:09 Urine Ketones Negative (Negative) 05/21/23 13:09 Urine Blood Negative (Negative) 05/21/23 13:09 Urine Nitrite Negative (Negative) 05/21/23 13:09 Urine Bilirubin Negative (Negative) 05/21/23 13:09 Urine Urobilinogen Negative (Negative) 05/21/23 13:09 Ur Leukocyte Esterase Negative (Negative) 05/21/23 13:[address] 05/21/23 11:29 CT SCAN OF THE BRAIN WITHOUT IV CONTRAST CLINICAL HISTORY: Seizure. COMPARISON STUDY: No priors. TECHNIQUE: Unenhanced axial CT scan of the brain is performed from the vertex to the skull base. A dose lowering technique was utilized adhering to the principles of ALARA. CT DOSE: 547.75 mGy.cm FINDINGS: Brain parenchyma: A chronic appearing lacunar infarct is noted in the right caudate head. There is no hemorrhage, mass effect, or evidence of acute territorial ischemia by CT criteria. Rey-white matter differentiation is preserved. No extra-axial fluid collection is seen. Ventricles, sulci, cisterns: Normal in configuration. Intracranial vasculature: The visualized intracranial vasculature at the skull base is normal in appearance. Calvarium: Unremarkable. Sinuses and mastoids: The visualized paranasal sinuses are clear. The mastoid air cells are well pneumatized. Orbits: The bony orbits are grossly intact. IMPRESSION: There is no hemorrhage, mass effect, or evidence of acute territorial ischemia by CT criteria. ACT 112: Negative or not required by law. Electronically signed by: Sherif Lemus M.D. 05/21/2023 11:59 AM Brain MRI 05/21/23 14:55 MR brain seizure wo/w con HISTORY: 47 years-old Male seizure acute seizure-like activity COMPARISON: Head CT of same day TECHNIQUE: Multiple multisequence MRI of the brain was obtained with and without use of IV contrast utilizing seizure protocol. FINDINGS: Study is mildly motion degraded. There is no restricted diffusion. The midline structures are unremarkable. Partially empty sella. There is no acute intracranial hemorrhage, midline shift, abnormal extra-axial collection, hydro cephalus or intra-axial mass. There is no abnormal enhancement. The mesial temporal lobes appear to be within normal limits. The brain volume is within normal limits. There are a few scattered punctate foci of T2/FLAIR prolongation within the subcortical and periventricular white matter which are likely of no clinical evidence. No acute seizure focus, rey matter heterotopia or cortical dysplasia. Cerebral venous sinuses and major arterial flow voids appear patent. Skull, orbits and soft tissues are unremarkable. Minimal mucosal thickening of the left maxillary sinus. IMPRESSION: 1. No acute intracranial abnormality. 2. No abnormal enhancement. ACT 112: Negative or not required by law. The above report was generated using voice recognition software. It may contain grammatical, syntax or spelling errors. Electronically signed by: Sb Abbott M.D. 05/21/2023 5:05 PM Carotid Doppler Study 05/22/23 14:02 ULTRASOUND OF THE CAROTID ARTERIES CLINICAL HISTORY: Syncope. COMPARISON STUDY: No priors. TECHNIQUE: Real-time, grayscale, and color Doppler sonography of the carotid arteries is performed. Images are reviewed in the transverse and longitudinal planes. FINDINGS: The carotid arteries are patent bilaterally and demonstrate antegrade flow. There is no significant atherosclerotic plaque identified. Normal doppler ar terial waveforms are seen throughout. Velocity measurements are listed below. Common carotid peak systolic velocity (cm/sec): RIGHT: 92 LEFT: 133 ICA proximal peak systolic velocity (cm/sec): RIGHT: 80 LEFT: 79 ICA mid peak systolic velocity (cm/sec): RIGHT: 79 LEFT: 64 ICA distal peak systolic velocity (cm/sec): RIGHT: 84 LEFT: 74 ICA/CC peak systolic ratio: RIGHT: 0.9 LEFT: 0.6 Antegrade flow was shown in the vertebral arteries. The external carotid arteries are patent. IMPRESSION: 1. There is no sonographic evidence of hemodynamically significant stenosis in the right or left carotid arterial system. 2. Antegrade flow is shown in the vertebral arteries. ACT 112: Negative or not required by law. Electronically signed by: Sherif Lemus M.D. 05/22/2023 3:47 PM Ordered Studies 05/21/23 11:29 CT head/brain wo con Stat 05/21/23 14:55 MR brain seizure wo/w con Routine 05/22/23 14:02 US carotid doppler BI Routine Hospital Course (1) Seizure-like activity: Convulsive syncope No known seizure disorder --MRI Brain:No acute intracranial abnormality. No abnormal enhancement. --ECHO: Left ventricle is normal in size. Left ventricular systolic function is normal. EF 55 to 60%. Right ventricle systolic function is normal. Left atrial size is normal. Right atrial size is normal. No significant valvular pathology. Patent foramen ovale is present and there is low risk for embolism. -- Carotid ultrasound: There is no sonographic evidence of hemodynamically significant stenosis in the right or left carotid arterial system. Antegrade flow is shown in the vertebral arteries. --EEG:This is a normal awake and drowsy routine EEG. There is no evidence of focal slowing or epileptiform activity. --Normal orthostatics --- No rhythm issues on monitor. Transient bradycardia. Appreciate nephrology input Continue seizure precautions, fall precautions Advised no driving until cleared by his neurologist Also advised to get Zio patch arranged by PCP Needs follow-up with neurology upon discharge Plan to discharge home today (2) Hypokalemia: K+ 3.0, Mg+ 1.9 Replace, monitor electrolytes (3) Tobacco abuse: Nicotine patch Patient counseled regarding tobacco cessation DVT Px SCDs Total Time Total Time Spent Total Time Spent (In Minutes): 58 minutes Discharge Plan Discharge Items Patient Disposition: Home - Self-Care Reason For Visit: SEIZURE Discharge Diagnosis: Convulsive syncope Sinus bradycardia Hypokalemia Activity: Per Instructions section Exercise/Sports: Wait until after follow-up appointment Driving/Machine Use: No driving permitted until cleared by your Primary Care Physician/Neurology Non-emergency contact: Primary Care Provider, [employer] and Neurologist Call non-emergency contact if: you have any medication questions, your symptoms worsen, your pain is concerning for you and you have a fever Follow-up/Referrals: [facility] [Other] (Your doctor's office is aware of your discharge. The Transition of Care Nurse will contact you and provide an appointment for follow up.) Leydi Mann MD [Physician] - (Date & Time 05/30/2023 10:40 AM Provider Leydi Mann MD Department Neurology [facility] ) Diet: Regular Addtl Attending Provider Instructions: Follow-up with your primary care physician in 1 week as advised Follow-up with your neurologist Dr. Mann on 05/30/2023 10:40 AM as scheduled Follow-up with your clinical transplant coordinator for further evaluation of low heart rate, syncopal episode. ---No driving permitted until cleared by your neurologist/primary care physician. ---Quit smoking as advised. --Discussed with your physician for need to be arranged for ZIO monitor to rule out any heart rhythm issues. Seek immediate medical attention if your symptoms reoccur or worsen Please take all medications as instructed on discharge list below. Please call if you have any questions or problems. You can reach a [facility] hospitalist on duty at [facility] 24 hours a day by calling [phone] Pending Studies at Discharge: No Stand-Alone Forms: My [facility], Work/School Release, Smoking Cessation Medications and DC Order Prescriptions: New potassium chloride 20 mEq Tablet,Er Particles/Crystals 20 meq PO DAILY Qty: 5 0RF Discharge Orders: Discharge Order (Routine); Ordered 05/23/23 Ordered By: Chevy Jeong Admission Data Admit Date/Time: 05/21/23 14:36 Attending Provider: Chevy Jeong Admit Provider: Liv Lambert Primary Care Provider: PCP,NO Other Providers: Liv Lambert; [place]
== END 2023-05-23 14:04 | disposition home or self-care (01) | DRG 101 ==
LOC: ED 10:56 → 2E 14:36 → INTOOBSV 14:36 → SUATTDRO 14:36 → 2E 16:15